=== PATIENT | male | born 1975 | race Caucasian/White ===

== ENCOUNTER 2022-03-03 20:13 | Emergency (ER) | payer SELFPAY | END 2022-03-03 22:25 | disposition home or self-care (01) | LOC: MW.ED 20:13 | DX: T23.102A Burn of first degree of left hand, unspecified site, initial encounter (principal); T23.101A Burn of first degree of right hand, unspecified site, initial encounter; T20.10XA Burn of first degree of head, face, and neck, unspecified site, initial encounter; X08.8XXA Exposure to other specified smoke, fire and flames, initial encounter | CPT/HCPCS: 99283 ==